=== PATIENT | female | born 1945 | race African-American/Black ===

== ENCOUNTER 2017-01-04 17:44 | Inpatient (IN) | payer OTHER ==
[~2017-01-04] VITALS: Ht 167.6 cm; Wt 72.6 kg
[2017-01-04] MEDS ORDERED: LISI-604 PO (17:53)
[2017-01-04] MEDS ORDERED: ATEN50TA PO (17:53)
[2017-01-04] MEDS ORDERED: POTA10TA2 PO (17:53)
[2017-01-04] MEDS ORDERED: ATOR20TA65 PO (17:53)
[2017-01-04] MEDS ORDERED: FURO20TA4 PO (17:53)
[2017-01-04 19:30] LABS: EOSINOPHILS % 1.3 % (0.0-5.0); HEMATOCRIT. 36.6 % (36.0-48.0); HEMOGLOBIN. 12.3 g/dL (12.0-16.0); LYMPHOCYTES % 32.9 % (20.0-50.0); MEAN CORPUSCULAR HEMOGLOBIN 31.9 pg (28.0-32.0); MEAN CORPUSCULAR VOLUME 95.2 fL (81.0-99.0); MEAN PLATELET VOLUME 7.9 fl (7.4-10.4); MONOCYTES % 8.1 % (2.0-8.0); NEUTROPHILS % 56.7 % (40.0-76.0); PLATELET 172 x1000/uL (130-400); RED BLOOD CELL COUNT 3.84 mill/uL (4.2-5.4)
[2017-01-04 19:33] LABS: INR 1.1; PROTHROMBIN TIME 11.6 sec (9.4-11.6)
[2017-01-04 19:39] LABS: CARBON DIOXIDE 33 mEq/L (21-32); CHLORIDE 101 mEq/L (98-107)
[2017-01-04 19:42] LABS: TROPONIN I 0.02 ng/mL (0.00-0.04)
[2017-01-04 20:45] LABS: CLARITY URINE CLEAR (CLEAR); COLOR URINE YELLOW (YELLOW); GLUCOSE URINE NEGATIVE (NEGATIVE); KETONES URINE NEGATIVE (NEGATIVE); LEUKOCYTE ESTERASE URINE NEGATIVE (NEGATIVE); NITRITE URINE NEGATIVE (NEGATIVE); OCCULT BLOOD URINE NEGATIVE (NEGATIVE); PH URINE 6.5 (4.5-8.0); PROTEIN URINE 1+ (NEGATIVE); SPECIFIC GRAVITY URINE 1.015 (1.005-1.030); UROBILINOGEN URINE 0.2 E.U./dL (0.2-1.0)
[2017-01-04] MEDS ORDERED: LABETALOL 5MG/ML SYR 20 MG/4 ML SYRINGE IV ONE (23:15)
[2017-01-05 00:30] VITALS: BP 158/107
[2017-01-05] MEDS ORDERED: ACETAMINOPHEN 325MG TABLET PO PRN (02:00)
[2017-01-05] MEDS: FUROSEMIDE 40MG/4ML VIAL IVP SCH ×2 (02:18→17:09)
[2017-01-05 04:00] VITALS: BP 136/86
[2017-01-05 08:10] VITALS: BP 155/107
[2017-01-05] MEDS: ASPIRIN 81MG TABLET PO SCH (08:31)
[2017-01-05] MEDS: CARVEDILOL 3.125 MG TABLET PO SCH ×2 (08:31→21:03)
[2017-01-05] MEDS ORDERED: LISINOPRIL 20MG TABLET PO SCH (09:00)
[2017-01-05] MEDS ORDERED: APIXABAN 5 MG TABLET PO SCH (09:00)
[2017-01-05 12:12] VITALS: BP 135/86
[2017-01-05 16:12] LABS: CREATINE KINASE MB FRACTION 0.9 ng/mL (0.5-3.6); T4 FREE 1.21 ng/dL (0.76-1.46); TROPONIN I 0.03 ng/mL (0.00-0.04)
[2017-01-05 16:45] VITALS: BP 141/95
[2017-01-05] MEDS: HYDRALAZINE HCL 50MG TABLET PO SCH ×2 (17:10→22:00)
[2017-01-05 20:00] VITALS: BP 131/68
[2017-01-05] MEDS: LISINOPRIL 20MG TABLET PO SCH (21:03)
[2017-01-06] VITALS (7 sets, daily range): BP systolic 89–165; BP diastolic 50–104
[2017-01-06 00:06] LABS: CREATINE KINASE 59 IU/L (26-192); CREATINE KINASE MB FRACTION < 0.5 ng/mL (0.5-3.6); TROPONIN I 0.03 ng/mL (0.00-0.04)
[2017-01-06] MEDS: FUROSEMIDE 40MG/4ML VIAL IVP SCH ×2 (01:44→15:53)
[2017-01-06] MEDS: HYDRALAZINE HCL 50MG TABLET PO SCH ×3 (04:35→20:15)
[2017-01-06 08:11] LABS: CREATINE KINASE 61 IU/L (26-192); CREATINE KINASE MB FRACTION < 0.5 ng/mL (0.5-3.6); TROPONIN I 0.03 ng/mL (0.00-0.04)
[2017-01-06] MEDS: ASPIRIN 81MG TABLET PO SCH (09:06)
[2017-01-06] MEDS: CARVEDILOL 3.125 MG TABLET PO SCH ×2 (09:09→20:14)
[2017-01-06] MEDS: LISINOPRIL 20MG TABLET PO SCH ×2 (09:09→20:15)
[2017-01-06] MEDS: ENOXAPARIN 40MG/0.4ML SYR SUBCUT SCH (12:35)
[2017-01-07] VITALS: BP 121/73
[2017-01-07] MEDS: FUROSEMIDE 40MG/4ML VIAL IVP SCH ×2 (01:35→14:00)
[2017-01-07 04:00] VITALS: BP_SYST 106; BP_SYST 113; BP_DIAS 55; BP_DIAS 80
[2017-01-07] MEDS: HYDRALAZINE HCL 50MG TABLET PO SCH ×3 (05:11→22:00)
[2017-01-07 06:26] LABS: BASOPHILS % 0.5 % (0.0-2.0); EOSINOPHILS % 2.1 % (0.0-5.0); HEMATOCRIT. 38.1 % (36.0-48.0); HEMOGLOBIN. 12.9 g/dL (12.0-16.0); LYMPHOCYTES % 40.2 % (20.0-50.0); MEAN CORPUSCULAR VOLUME 94.3 fL (81.0-99.0); MEAN PLATELET VOLUME 7.8 fl (7.4-10.4); MONOCYTES % 13.4 % (2.0-8.0); NEUTROPHILS % 43.8 % (40.0-76.0); PLATELET 198 x1000/uL (130-400); RED BLOOD CELL COUNT 4.04 mill/uL (4.2-5.4); RED CELL DISTRIBUTION WIDTH 15.9 % (11.6-14.6)
[2017-01-07 08:00] VITALS: BP 120/85
[2017-01-07] MEDS: ASPIRIN 81MG TABLET PO SCH (08:33)
[2017-01-07] MEDS: LISINOPRIL 20MG TABLET PO SCH ×2 (08:34→21:00)
[2017-01-07] MEDS: ENOXAPARIN 40MG/0.4ML SYR SUBCUT SCH (08:34)
[2017-01-07] MEDS: CARVEDILOL 3.125 MG TABLET PO SCH ×2 (08:34→21:00)
[2017-01-07 12:00] VITALS: BP 91/61
[2017-01-07] MEDS ORDERED: POTASSIUM CHLORIDE INJ 40 MEQ in DEXT 5% WATER 250 ML IV SCH (14:00)
[2017-01-07 16:00] VITALS: BP 112/65
[2017-01-07] MEDS: APIXABAN 5 MG TABLET PO SCH (16:48)
[2017-01-07 20:00] VITALS: BP 101/66
[2017-01-08] VITALS: BP 118/72
[2017-01-08] MEDS: FUROSEMIDE 40MG/4ML VIAL IVP SCH ×2 (02:56→14:14)
[2017-01-08 04:00] VITALS: BP 102/70
[2017-01-08] MEDS: HYDRALAZINE HCL 50MG TABLET PO SCH ×2 (05:17→14:00)
[2017-01-08 08:00] VITALS: BP 99/59
[2017-01-08] MEDS: ASPIRIN 81MG TABLET PO SCH (08:36)
[2017-01-08] MEDS: APIXABAN 5 MG TABLET PO SCH ×2 (08:36→16:29)
[2017-01-08] MEDS: CARVEDILOL 3.125 MG TABLET PO SCH (08:37)
[2017-01-08] MEDS: LISINOPRIL 20MG TABLET PO SCH (08:37)
[2017-01-08 09:22] LABS: BASOPHILS % 1.1 % (0.0-2.0); EOSINOPHILS % 3.2 % (0.0-5.0); HEMATOCRIT. 40.9 % (36.0-48.0); HEMOGLOBIN. 13.9 g/dL (12.0-16.0); LYMPHOCYTES % 47.3 % (20.0-50.0); MEAN CORPUSCULAR HEMOGLOBIN 32.3 pg (28.0-32.0); MEAN CORPUSCULAR VOLUME 94.9 fL (81.0-99.0); MEAN PLATELET VOLUME 7.9 fl (7.4-10.4); MONOCYTES % 12.5 % (2.0-8.0); NEUTROPHILS % 35.9 % (40.0-76.0); PLATELET 205 x1000/uL (130-400); RED BLOOD CELL COUNT 4.31 mill/uL (4.2-5.4); RED CELL DISTRIBUTION WIDTH 15.9 % (11.6-14.6)
[2017-01-08 12:00] VITALS: BP 123/63
[2017-01-08] MEDS ORDERED: ASPI-1160 PO (12:11)
[2017-01-08] MEDS ORDERED: APIX5TAB PO (12:11)
[2017-01-08 13:30] VITALS: BP 123/63
[2017-01-08] MEDS ORDERED: AMLODIPINE 5MG TABLET PO SCH (21:00)
[2017-01-08] MEDS ORDERED: HYDRALAZINE HCL 25MG TABLET PO SCH (22:00)
== END 2017-01-08 19:15 | disposition home or self-care (01) | DRG 291 ==
LOC: ER 19:07 → 7WST 22:27 → ENRESERV 22:39 → 7WST 01-05 01:05
PROVIDERS: ADMIT Internal Medicine; ATTEND Internal Medicine
DX: I11.0 Hypertensive heart disease with heart failure (principal); J96.00 Acute respiratory failure, unspecified whether with hypoxia or hypercapnia; I47.2 Ventricular tachycardia; I50.33 Acute on chronic diastolic (congestive) heart failure; I48.91 Unspecified atrial fibrillation; Z86.73 Personal history of transient ischemic attack (TIA), and cerebral infarction without residual deficits; E78.5 Hyperlipidemia, unspecified; H54.7 Unspecified visual loss; I08.1 Rheumatic disorders of both mitral and tricuspid valves; I27.20 Pulmonary hypertension, unspecified; Z79.899 Other long term (current) drug therapy
CPT/HCPCS: 36415; 70450; 70551; 71010; 80048; 80053; 80061; 81001; 82550; 82553; 83036; 83880; 84439; 84443; 84484; 85025; 85379; 85610; 93005; 93306; 93970; 96374; 99285; J1650; J1940; J3480; J3490; J7050; J7060